=== PATIENT | female | born 1945 | race Caucasian/White ===

== ENCOUNTER 2017-10-08 20:01 | Emergency (ER) | payer MEDICARE, OTHER ==
--- NOTE | 2017-10-08 21:03 | ER Document Report ---
ED Medical Screen (RME) - General Chief Complaint: Altered Mental Status Stated Complaint: POSSIBLE STROKE Time Seen by Provider: 10/08/17 20:53 Mode of Arrival: Ambulatory Information source: Patient, Relative TRAVEL OUTSIDE OF THE [place] IN LAST 30 DAYS: Yes - HPI Onset: This afternoon Onset/Duration: Sudden Context: INACTIVE, JUST WATCHING T.V. Quality of pain: No pain Associated Symptoms: denies: Chest pain, Dizzy/lightheaded, Headache, Shortness of breath Exacerbated by: Denies Relieved by: Other - GRADUALLY IMPROVED W/ TIME Similar symptoms previously: Yes - 11/2013, ALMOST IDENTICAL CLINICAL PRESENTATION Recently seen / treated by doctor: No Notes: 10/08/17 21:05 Patient's spouse gives history that patient had an almost identical episode 4 years ago, during which all short-term memory and much long-term memory was wiped out. Extensive workup was done, with no anatomic lesions found. Memory functions gradually returned to normal, although events immediately preceding the episode were never recalled. At that time the patient had an extensive workup, including MRI scan, which was normal. Patient states that she is very claustrophobic and absolutely cannot tolerate MRI without heavy sedation. Patient and spouse were told that MRI scan is certainly indicated as part of the workup, but not absolutely essential. They agreed to undergo a limited workup. - Related Data Allergies/Adverse Reactions: No Known Allergies Allergy (Unverified 10/08/17 20:09) Past Medical History - General Information source: Patient, Relative - Social History Cigarette use (# per day): No Chew tobacco use (# tins/day): No Frequency of alcohol use: None Drug Abuse: Marijuana Lives with: Spouse/Significant other Family history: Reviewed & Not Pertinent - Past Medical History Cardiac Medical History: Reports: Hx Hypercholesterolemia Pulmonary Medical History: Reports: None EENT Medical History: Reports: None Neurological Medical History: Reports: Other - TRANSIENT GLOBAL AMNESIA. Denies : Hx Cerebrovascular Accident, Hx Migraine, Hx Seizures Endocrine Medical History: Reports: Hx Hypothyroidism Renal/ Medical History: Reports: None. Denies: Hx Peritoneal Dialysis GI Medical History: Reports: None Musculoskeltal Medical History: Reports None Psychiatric Medical History: Reports: None Surgical Hx: Negative Review of Systems - Review of Systems Constitutional: No symptoms reported EENT: No symptoms reported Cardiovascular: No symptoms reported Respiratory: No symptoms reported Gastrointestinal: No symptoms reported Genitourinary: No symptoms reported Female Genitourinary: Post menopausal Musculoskeletal: No symptoms reported Skin: No symptoms reported Neurological/Psychological: See HPI Physical Exam - Vital signs Vitals: Temp Pulse Resp BP Pulse Ox 98.7 F 82 19 164/85 H 95 10/08/17 20:18 10/08/17 20:18 10/08/17 20:18 10/08/17 20:18 10/08/17 20:18 Interpretation: Hypertensive. No: Hypoxic, Tachypneic - General General appearance: Appears well, Alert In distress: None - HEENT Head: Normocephalic Eyes: Normal Conjunctiva: Normal Ears: Normal Nasal: Normal Mouth/Lips: Normal Mucous membranes: Normal - Respiratory Respiratory status: No respiratory distress - Cardiovascular Rhythm: Regular Heart sounds: Normal auscultation Murmur: No - Abdominal Inspection: Normal Distension: No distension - Extremities General upper extremity: Normal inspection General lower extremity: Normal inspection - Neurological Neuro grossly intact: No - SPOUSE SAYS NEARLY NORMAL RECALL NOW Cognition: Normal Orientation: AAOx4 - Psychological Associated symptoms: Normal affect, Normal mood - Skin Skin Temperature: Warm Skin Moisture: Dry Skin Color: Normal Skin Turgor: Elastic Course - Vital Signs Vital signs: Temp Pulse Resp BP Pulse Ox 98.7 F 82 19 164/85 H 95 10/08/17 20:18 10/08/17 20:18 10/08/17 20:18 10/08/17 20:18 10/08/17 20:18
[2017-10-08] MEDS ORDERED: LORAZEPAM 1 MG TABLET PO ONE (21:30)
[2017-10-08 21:55] LABS: ABSOLUTE BASOPHILS # (AUTO) 0.1 10^3/uL (0.0-0.2); ABSOLUTE EOSINOPHILS # (AUTO) 0.1 10^3/uL (0.0-0.6); ABSOLUTE LYMPHOCYTES (AUTO) 1.9 10^3/uL (0.5-4.7); ABSOLUTE MONOCYTES (AUTO) 0.8 10^3/uL (0.1-1.4); ABSOLUTE NEUT (AUTO) 6.4 10^3/uL (1.7-8.2); BASOPHILS % (AUTO) 0.6 % (0-2); EOSINOPHILS % (AUTO) 0.8 % (0-6); HEMATOCRIT 43.5 % (36.0-47.0); HEMOGLOBIN 15.1 g/dL (12.0-15.5); HGB HCT DIFFERENCE 1.8; LYMPHOCYTES % (AUTO) 20.5 % (13-45); MEAN CORPUSCULAR HGB CONC 34.6 g/dL (32.0-36.0); MEAN CORPUSCULAR VOLUME 90 fl (80-97); MONOCYTES % (AUTO) 9.1 % (3-13); RED BLOOD COUNT 4.85 10^6/uL (3.72-5.28); RED CELL DISTRIBUTION WIDTH 13.6 % (11.5-14.0); WHITE BLOOD COUNT 9.3 10^3/uL (4.0-10.5)
[2017-10-08 22:14] LABS: ALANINE AMINOTRANSFERASE 35 U/L (9-52); ALBUMIN 4.7 g/dL (3.5-5.0); ALKALINE PHOSPHATASE 69 U/L (38-126); ANION GAP 12 (5-19); ASPARTATE AMINO TRANSFERASE 23 U/L (14-36); BILIRUBIN,DIRECT 0.5 mg/dL (0.0-0.4); BILIRUBIN,TOTAL 0.6 mg/dL (0.2-1.3); BLOOD UREA NITROGEN 18 mg/dL (7-20); CARBON DIOXIDE 27 mmol/L (22-30); CHLORIDE 103 mmol/L (98-107); CREATININE RESULT 0.91 mg/dL (0.52-1.25); GLUCOSE 103 mg/dL (75-110); POTASSIUM 3.9 mmol/L (3.6-5.0); SODIUM 142.3 mmol/L (137-145); TOTAL PROTEIN 7.1 g/dL (6.3-8.2)
--- NOTE | 2017-10-08 22:42 | ER Document Report ---
ED General - General Chief Complaint: Altered Mental Status Stated Complaint: POSSIBLE STROKE Time Seen by Provider: 10/08/17 20:53 Mode of Arrival: Ambulatory Information source: Patient Notes: 72-year-old female with history of global amnesia presents tearful with concerns that he she cannot remember things that happened today. Patient denies any pain anywhere, admits to significant stress in her life. Patient had similar episode 3 years prior and was diagnosed with global amnesia after having 3 orgasms in a row TRAVEL OUTSIDE OF THE [place] IN LAST 30 DAYS: Yes - HPI Onset: This afternoon Onset/Duration: Sudden Quality of pain: No pain Severity: Mild Pain Level: Denies Associated symptoms: Other Exacerbated by: Denies Relieved by: Denies Similar symptoms previously: Yes Recently seen / treated by doctor: Yes - Related Data Allergies/Adverse Reactions: No Known Allergies Allergy (Unverified 10/08/17 20:09) Past Medical History - General Information source: Patient, Relative - Social History Smoking Status: Never Smoker Cigarette use (# per day): No Chew tobacco use (# tins/day): No Smoking Education Provided: No Frequency of alcohol use: None Drug Abuse: Marijuana Lives with: Spouse/Significant other Family History: Reviewed & Not Pertinent Patient has suicidal ideation: No Patient has homicidal ideation: No - Past Medical History Cardiac Medical History: Reports: Hx Hypercholesterolemia Pulmonary Medical History: Reports: None EENT Medical History: Reports: None Neurological Medical History: Reports: Other - TRANSIENT GLOBAL AMNESIA. Denies : Hx Cerebrovascular Accident, Hx Migraine, Hx Seizures Endocrine Medical History: Reports: Hx Hypothyroidism Renal/ Medical History: Reports: None. Denies: Hx Peritoneal Dialysis GI Medical History: Reports: None Musculoskeltal Medical History: Reports None Psychiatric Medical History: Reports: None Surgical Hx: Negative Review of Systems - Review of Systems Notes: REVIEW OF SYSTEMS: CONSTITUTIONAL : Denies fever, chills, or sweats. Denies recent illness. EENT: Denies eye, ear, throat, or mouth pain or symptoms. Denies nasal or sinus congestion or discharge. Denies throat, tongue, or mouth swelling or difficulty swallowing. CARDIOVASCULAR: Denies chest pain. Denies palpitations or racing or irregular heart beat. Denies ankle edema. RESPIRATORY: Denies cough, cold, or chest congestion. Denies shortness of breath, difficulty breathing, or wheezing. GASTROINTESTINAL: Denies abdominal pain or distention. Denies nausea, vomiting , or diarrhea. Denies blood in vomitus, stools, or per rectum. Denies black, tarry stools. Denies constipation. GENITOURINARY: Denies difficulty urinating, painful urination, burning, frequency, blood in urine, or discharge. FEMALE GENITOURINARY: Denies vaginal bleeding, heavy or abnormal periods, irregular periods. Denies vaginal discharge or odor. MUSCULOSKELETAL: Denies back or neck pain or stiffness. Denies joint pain or swelling. SKIN: Denies rash, lesions or sores. HEMATOLOGIC : Denies easy bruising or bleeding. LYMPHATIC: Denies swollen, enlarged glands. NEUROLOGICAL: Admits to forgetfulness PSYCHIATRIC: Denies anxiety or stress. Denies depression, suicidal ideation, or homicidal ideation. ALL OTHER SYSTEMS REVIEWED AND NEGATIVE. PHYSICAL EXAMINATION: GENERAL: Well-appearing, well-nourished and in no acute distress. HEAD: Atraumatic, normocephalic. EYES: Pupils equal round and reactive to light, extraocular movements intact, conjunctiva are normal. ENT: Nares patent, oropharynx clear without exudates. Moist mucous membranes. NECK: Normal range of motion, supple without lymphadenopathy LUNGS: Breath sounds clear to auscultation bilaterally and equal. No wheezes rales or rhonchi. HEART: Regular rate and rhythm without murmurs ABDOMEN: Soft, nontender, nondistended abdomen. No guarding, no rebound. No masses appreciated. Female : deferred Musculoskeletal: Normal range of motion, no pitting or edema. No cyanosis. NEUROLOGICAL: Cranial nerves grossly intact. Normal speech, normal gait. Normal sensory, motor exams PSYCH: Normal mood, normal affect. SKIN: Warm, Dry, normal turgor, no rashes or lesions noted. Dictation was performed using [employer] voice recognition software Physical Exam - Vital signs Vitals: Temp Pulse Resp BP Pulse Ox 98.7 F 82 19 164/85 H 95 10/08/17 20:18 10/08/17 20:18 10/08/17 20:18 10/08/17 20:18 10/08/17 20:18 Course - Re-evaluation Re-evalutation: 10/09/17 01:16 Patient initially refused imaging, however I was able to talk her into it, CT of the head was negative, I do believe this is more of a stress reaction given her presentation and how much stress she is under with her family, both patient and agree that this is probably the cause None the less I have asked him to please see a neurologist for further evaluation care they state they will do so Otherwise patient is in no distress and stable for discharge After performing a Medical Screening Examination, I estimate there is LOW risk for ACUTE GLAUCOMA, TEMPORAL ARTERITIS, MENINGITIS, INCRANIAL HEMORRHAGE, or ISCHEMIC STROKE thus I consider the discharge disposition reasonable. I have reevaluated this patient multiple times and no significant life threatening changes are noted. The patient and I have discussed the diagnosis and risks, and we agree with discharging home with close follow-up with the understanding that symptoms and presentations can change. We also discussed returning to the Emergency Department immediately if new or worsening symptoms occur. We have discussed the symptoms which are most concerning (e.g., changing or worsening symptoms, new numbness or weakness, vomiting, fever) that necessitate immediate return. - Vital Signs Vital signs: Temp Pulse Resp BP Pulse Ox 98.7 F 82 12 128/89 H 94 10/08/17 20:18 10/08/17 20:18 10/08/17 23:31 10/08/17 23:31 10/08/17 23:31 - Laboratory Result Diagrams: 10/08/17 21:39 10/08/17 21:39 Laboratory results interpreted by me: 10/08/17 21:39 Direct Bilirubin 0.5 H Discharge - Discharge Clinical Impression: Global amnesia, Stress and adjustment reaction Condition: Stable Disposition: HOME, SELF-CARE Prescriptions: Lorazepam [Ativan 1 mg Tablet] 1 mg PO Q4 PRN #30 tab PRN Reason: Referrals: IZZY LUZ MD [ACTIVE STAFF] - Follow up tomorrow
--- NOTE | 2017-10-08 23:02 | RADIOLOGY REPORT (SQ) ---
EXAM DESCRIPTION: CT HEAD WITHOUT COMPLETED DATE/TIME: 10/08/2017 10:26 pm REASON FOR STUDY: confusion COMPARISON: None. TECHNIQUE: Axial images acquired through the brain without intravenous contrast. Images reviewed wi th bone, brain and subdural windows. Images stored on PACS. All CT scanners at this facility use dose modulation, iterative reconstruction, and/or weight based d osing when appropriate to reduce radiation dose to as low as reasonably achievable (ALARA). [facility]: Dose Right [facility]: CareDose [facility]: Dose Right [facility]: Teradose 4D [facility]: RainStor RADIATION DOSE: mGy. LIMITATIONS: None. FINDINGS: VENTRICLES: Normal size and contour. CEREBRUM: No masses. No hemorrhage. No midline shift. No evidence for acute infarction. Normal gra y/white matter differentiation. No areas of low density in the white matter. CEREBELLUM: No masses. No hemorrhage. No alteration of density. No evidence for acute infarction. EXTRAAXIAL SPACES: No fluid collections. No masses. ORBITS AND GLOBE: No intra- or extraconal masses. Normal contour of globe without masses. CALVARIUM: No fracture. PARANASAL SINUSES: No fluid or mucosal thickening. SOFT TISSUES: No mass or hematoma. OTHER: No other significant finding. IMPRESSION: No acute intracranial findings. EVIDENCE OF ACUTE STROKE: NO. COMMENT: Quality ID # [id number]: Final reports with documentation of one or more dose reduction techniques (e.g., Automated exposure control, adjustment of the mA and/or kV according to patient size, use of iterative reconstruction technique) TECHNICAL DOCUMENTATION: JOB ID: [id number] [place]-72 2010 [employer]- All Rights Reserved
--- NOTE | 2017-10-08 23:18 | EKG REPORT ---
SEVERITY:- ABNORMAL ECG - SINUS RHYTHM PROBABLE POSTERIOR INFARCT : Confirmed by: Lane Powers MD 08-Oct-2017 23:17:39
[2017-10-08 23:39] VITALS: BP 128/89
== END 2017-10-08 23:45 | disposition home or self-care (01) ==
LOC: ER 20:01
DX: R41.3 Other amnesia (principal); F43.20 Adjustment disorder, unspecified; R41.82 Altered mental status, unspecified
CPT/HCPCS: 36415; 70450; 80053; 85025; 93005; 93010; 99285